=== PATIENT | female | born 1965 | race Caucasian/White ===

== ENCOUNTER 2018-08-04 16:12 | Emergency (ER) | payer MEDICAID, SELFPAY ==
[2018-08-04 16:19] VITALS: BP 143/92; PULSE 84; RESP 18; TEMP 36.7; O2SAT 96
[2018-08-04] MEDS: predniSONE 20 MG TAB 60 MG PO (16:52)
[2018-08-04] MEDS: Albuterol/Ipratropium 3 ML UPD VIAL UPD (16:52)
[2018-08-04] MEDS: Doxycycline Hyclate 100 MG CAP PO (16:52)
--- NOTE | 2018-08-04 17:02 | DI.RAD_ITS ---
SYMPTOM/DIAGNOSIS: PRODUCTIVE COUGH PA AND LATERAL CHEST: Comparison is made with portable chest dated 12/28/16. The heart size is normal. The lung bases are suboptimally penetrated due to soft tissue. The lungs are grossly clear. No focal infiltrate or effusion is visible. IMPRESSION: No acute abnormality.
--- NOTE | 2018-08-04 17:22 | DI.VRAD_ITS ---
EXAM: XR Chest, 2 Views EXAM DATE/TIME: 08/04/2018 4:39 PM CLINICAL HISTORY: 53 years old, female; Signs and symptoms; Patient HX: Productive cough TECHNIQUE: Imaging protocol: XR of the chest, 2 views. COMPARISON: [place] PORTABLE CHEST ONE VIEW 12/28/2016 7:30 PM FINDINGS: Lungs: Increased groundglass opacification in the right middle lobe. Mild segmental bronchial wall thickening suggested. Pleural space: Unremarkable. No pleural effusion. No pneumothorax. Heart/Mediastinum: Unremarkable. No cardiomegaly. Bones/joints: Unremarkable. IMPRESSION: Concern for developing/early airspace disease in the right middle lobe with superimposed acute bronchitis. Infectious pneumonic process to be entertained in the appropriate clinical setting. Dictated and Authenticated by: Hermann Rebolledo MD. Ordering:QUINN Brody MD
[2018-08-04] MEDS: levoFLOXacin 250 MG TAB 750 MG PO (17:43)
--- NOTE | 2018-08-04 17:46 | ED.GENADUL_ITS ---
Discharge Plan Disposition Patient Disposition: HOME Discharge Details Chief Complaint: RespSymp Clinical Impression: Bronchitis, Pneumonia, COPD exacerbation, Cigarette smoker Primary Care Provider: Aliyah Andrew ED Provider: Ronn Castellon Home Meds and New Rx's Prescriptions: New levofloxacin [Levaquin] 750 mg tablet 750 mg PO DAILY Qty: 4 RF: 0 prednisone 20 mg tablet 40 mg PO DAILY 4 Days Qty: 8 RF: 0 Continued Levemir FlexTouch U-100 Insuln 100 unit/mL (3 mL) insulin pen 25 unit SC BID RF: 0 sertraline 100 MG tablet 200 mg PO DAILY RF: 0 buprenorphine-naloxone [Suboxone] 1 EACH film 20 mg Sublingual DAILY RF: 0 Spiriva with HandiHaler 1 PUFF capsule, w/inhalation device 1 puff Inhalation DAILY Qty: 1 RF: 3 albuterol sulfate [Proventil HFA] 1 PUFF HFA aerosol inhaler 2 inh Inhalation Q4H PRN PRNQty: 1 RF: 3 Advair HFA 12 GM HFA aerosol inhaler 2 gm Inhalation BID Qty: 1 RF: 0 Discharge Instructions Instructions: How to Stop Smoking (ED), COPD (Chronic Obstructive Pulmonary Disease) (ED), Pneumonia (ED) Additional Instructions: Please use your nebulizer as prescribed. Be sure to take prednisone as prescribed. Your next dose is tomorrow. Please take antibiotic as prescribed. Your next dose is tomorrow. Please contact your primary care physician to arrange follow-up. Call tomorrow morning. Return to the ER for any worsening or new concerning symptoms. Stand Alone Forms: Work Release Referrals: Aliyah Andrew [Primary Care Provider] - Medical Decision Making 53-year-old female smoker with history of COPD and diabetes, here with productive cough, wheeze and shortness of breath. Patient is saturating well in no respiratory distress. She does have some wheeze and decreased breath sounds at the bases bilaterally on initial assessment. Patient is hemodynamically stable. Concern for bronchitis versus pneumonia and acute COPD exacerbation. Patient was given DuoNeb treatment and prednisone 60 mg. On reassessment lungs were much improved. Chest x-ray was reviewed and interpreted by radiology: Concern for developing/early airspace disease in the right middle lobe with superimposed acute bronchitis. Infectious pneumonic process to be entertained in the appropriate clinical setting. Plan to treat with Levaquin 750 mg x 5 days given comorbidities. We will continue prednisone burst. Smoking cessation counseling was provided. I recommended timely outpatient follow-up. Patient verbalized understanding of importance of timely outpatient follow-up and will call her primary care physician tomorrow.' Disposition decision was made weighing the risks and benefits of hospitalization versus outpatient treatment, the risk for further decompensation, and the patient's wishes. The patient was stable and requested discharge. Prior to discharge, my usual and customary return precautions were reviewed with the patient - this included follow-up instructions and reason to return to the emergency department if condition worsens, does not improve as expected, or other new concerns arise. HPI General Mode of arrival: ambulatory . Date/Time Provider Initiated Documentation: 08/04/18 16:29 . Limitations to Documentation: no limitations . Information obtained by: patient . HPI Narrative: 53-year-old female smoker with history of COPD, diabetes, here wit chief complaint of cough. Patient notes that she has had a cough productive of green sputum that has persisted and worsened over the past 1 month. Patient states she has severe coughing spells at times. She also notes she has had increased wheeze and shortness of breath recently. Subjective intermittent fever. Patient notes that she has not been taking her insulin. She checks her blood sugars regularly and notes that she only takes her insulin when she needs to. Related Data Home Medications Medication Instructions Recorded Confirmed buprenorphine-naloxone [Suboxone] 20 mg SUBLINGUAL DAILY 08/05/12 08/04/18 sertraline 200 mg PO DAILY 08/05/12 08/04/18 Advair HFA 2 gm INHALATION BID #1 inh 01/01/17 08/04/18 Spiriva with HandiHaler 1 puff INHALATION DAILY #1 antonella 01/01/17 08/04/18 albuterol sulfate [Proventil HFA] 2 inh INHALATION Q4H PRN PRN #1 inh 01/01/17 11/27/17 insulin detemir (U-100) 100 25 unit SC BID 11/27/17 11/27/17 unit/mL (3 mL) subcutaneous pen levofloxacin [Levaquin] 750 mg PO DAILY #4 tab 08/04/18 prednisone 40 mg PO DAILY 4 Days #8 tab 08/04/18 Previous Rx's Medication Instructions Recorded Advair HFA 2 gm INHALATION BID #1 inh 01/01/17 Spiriva with HandiHaler 1 puff INHALATION DAILY #1 antonella 01/01/17 albuterol sulfate [Proventil HFA] 2 inh INHALATION Q4H PRN PRN #1 inh 01/01/17 levofloxacin [Levaquin] 750 mg PO DAILY #4 tab 08/04/18 prednisone 40 mg PO DAILY 4 Days #8 tab 08/04/18 Allergies Allergy/AdvReac Type Severity Reaction Status Date / Time morphine sulfate Allergy Mild Unverified 08/04/18 16:25 [From MS Contin] clindamycin Allergy Skin Rash Unverified 08/04/18 16:25 duloxetine HCl Allergy Unverified 08/04/18 16:25 [From Cymbalta] General Stated Complaint: RespSymp MONICA: 3 Review of Systems Review of Systems All systems reviewed & are unremarkable except as noted in HPI and below Cardiovascular Denies chest pain Respiratory Reports as per HPI, Reports cough and Denies hemoptysis PFSH Medical History Anxiety and depression COPD (chronic obstructive pulmonary disease) Diabetes HTN (hypertension) Opioid abuse, in remission Tobacco use Surgical History History of total abdominal hysterectomy (Acute) S/P unilateral salpingo-oophorectomy (Acute) Family History Father Alcohol abuse Diabetes Myocardial infarct Mother Diabetes Depression Breast cancer Maternal Grandfather Diabetes Paternal Grandfather Diabetes Sister Diabetes Paternal Grandmother Lung cancer Social History Smoking/Tobacco Use Status: Current every day Tobacco Type: cigarettes Smoking cigarettes per day: 10 Tobacco: How many years used: 30 Alcohol Intake: current Alcohol Intake frequency: holidays/special occasions only Drug use: Never Substance use type: former substance user Number of Children: 2 Do you feel safe at home: Yes Do you feel safe in your relationship?: Yes Exam Const General: cooperative and no acute distress HENMT Head: normocephalic and atraumatic Mouth: moist mucous membranes Eyes Conjunctivae: normal conjunctivae Sclera: normal sclerae Neck Neck: trachea midline, supple and no JVD Resp Auscultation: no rales, no rhonchi and wheezes expiratory wheezes Cardio Jugular venous pressure: no JVD Rate: regular rate and not tachycardic Rhythm: regular rhythm GI Palpation: soft, not firm, no guarding, no masses, not rigid and nontender Skin General skin exam: no rashes or lesions noted Neuro General: alert, awake, oriented x3 and tone normal Extrem General: no calf tenderness and no edema Psych Appearance: grossly normal Course Vital Signs Temperature 36.7 C 08/04/18 16:19 Pulse 84 08/04/18 16:19 Respiratory Rate 18 08/04/18 16:19 Blood Pressure 143/92 H 08/04/18 16:19 Pulse Oximetry 96 08/04/18 16:19 Temperature 36.7 C 08/04/18 16:19 Temperature Source Temporal Artery Scan 08/04/18 16:19 Pulse 84 08/04/18 16:19 Respiratory Rate 18 08/04/18 16:19 Respiratory Effort Non-Labored 08/04/18 16:24 Blood Pressure 143/92 H 08/04/18 16:19 Blood Pressure Position Sitting 08/04/18 16:19 Pulse Oximetry 96 08/04/18 16:19 Oxygen Delivery Method Room Air 08/04/18 16:19 Oxygen Flow Rate 0 08/04/18 16:19 Pain Level 0 08/04/18 16:19
[2018-08-04 17:56] VITALS: BP 143/92; PULSE 84; RESP 18; TEMP 36.7; O2SAT 96
--- NOTE | 2018-08-04 18:17 | NUR.NOTE ---
Nursing Note: Referral faxed to [facility] for follow up. Ashley Nassar.
== END 2018-08-04 17:58 | disposition home or self-care (01) ==
PROVIDERS: Emergency Provider Student in an Organized Health Care Education/Training Program; PCP Family Medicine
DX: J44.1 Chronic obstructive pulmonary disease with (acute) exacerbation (principal); J20.9 Acute bronchitis, unspecified; J18.9 Pneumonia, unspecified organism; I10 Essential (primary) hypertension; F17.210 Nicotine dependence, cigarettes, uncomplicated; E11.9 Type 2 diabetes mellitus without complications; Z79.4 Long term (current) use of insulin
CPT/HCPCS: 36416; 82962; 94640; 99283; 71046; J7512; J7620

== ENCOUNTER 2018-10-14 12:18 | Emergency (ER) | payer MEDICAID, SELFPAY ==
[2018-10-14 12:22] VITALS: BP 114/71; PULSE 88; RESP 16; TEMP 36.5; O2SAT 98
[2018-10-14] MEDS: Amoxicillin 875/Clav. 125 TAB PO (12:50)
--- NOTE | 2018-10-14 13:06 | ED.GENADUL_ITS ---
Discharge Plan Disposition Patient Disposition: HOME Condition: Stable Discharge Details Chief Complaint: DentalOral Clinical Impression: Infected dental caries, Dental decay Primary Care Provider: Aliyah Andrew ED Provider: Duncan Joya Home Meds and New Rx's Prescriptions: New amoxicillin-pot clavulanate [Augmentin] 875-125 mg tablet 1 tab PO BID 7 Days Qty: 14 RF: 0 No Action Levemir FlexTouch U-100 Insuln 100 unit/mL (3 mL) insulin pen 25 unit SC BID RF: 0 sertraline 100 MG tablet 200 mg PO DAILY RF: 0 buprenorphine-naloxone [Suboxone] 1 EACH film 20 mg Sublingual DAILY RF: 0 Spiriva with HandiHaler 1 PUFF capsule, w/inhalation device 1 puff Inhalation DAILY Qty: 1 RF: 3 albuterol sulfate [Proventil HFA] 1 PUFF HFA aerosol inhaler 2 inh Inhalation Q4H PRN PRNQty: 1 RF: 3 Advair HFA 12 GM HFA aerosol inhaler 2 gm Inhalation BID Qty: 1 RF: 0 levofloxacin [Levaquin] 750 mg tablet 750 mg PO DAILY Qty: 4 RF: 0 Discharge Instructions Instructions: Dental Abscess (ED), Dental Caries (ED) Additional Instructions: It is very important that you take your antibiotics as prescribed and until fully gone. Do not save antibiotics for later use as this will not adequately treat your infection. You may continue to use 600 mg of ibuprofen along with 1000 mg of acetaminophen every 6 hours as needed for pain control. It is extremely important that you follow-up with a dentist for definitive care of your dental complaint and pain. Return to the emergency department immediately for any new or significant worsening of symptoms or change in your symptoms Referrals: Aliyah Andrew [Primary Care Provider] - (As needed for reassessment or dental referral) Discharge Data Discharge Date/Time-TO BE ENTERED AT DEPARTURE: 10/14/18 13:49 Medical Decision Making Patient presenting the emergency department for chief complaint of severe dental pain. Patient reports poor dental care and previous episodes of dental infections. Patient states department 3 days ago she noted some worsening dental discomfort in the right upper jaw and today felt like area was getting swollen. Physical exam shows extremely poor dentition with severe dental decay and dental loss even with some dilatation loss all the way to gumline. Tooth in the area of concern is surrounding tooth #7 there is severe dental loss with decay down to gumline, tenderness to this area, slight erythema but no palpable fluctuance or abscess is noted. Exam is otherwise unremarkable with no signs of Jamel's angina, peritonsillar abscess, retropharyngeal abscess, patient is afebrile non-hypotensive non-tachycardic. Thoroughly discussed with patient risk versus benefits of dental block which she agreed to this. After verbal consent was given patient was injected with 1 mL of 0.5% Marcaine. Patient tolerated procedure appropriately but it was difficult to fully get to the appropriate area given patient's hesitancy with severe guarding with any injection. Patient was placed upon Augmentin and encouraged to use [id number] Tylenol Motrin and strongly encouraged that she needs to follow-up with dental provider for definitive dental care. Return precautions were discussed. After discussion of diagnosis and plan of care patient has no further needs, questions, or concerns and states clear understanding to return to the emergency department for any worsening symptoms. HPI General Mode of arrival: ambulatory . Date/Time Provider Initiated Documentation: 10/14/18 12:21 . Limitations to Documentation: no limitations . Information obtained by: patient . History of Present Illness 53 year old F presents to the emergency department with the chief complaint of Dental pain, described as severe and similar to prior episodes, with intensity rated at 10. Quality is described as sharp, and is localized to the mouth. Patient started experiencing this day(s) (3) and it has been constant. No relieving factors improve symptom(s), Patient notes no other symptoms.. Patient did receive the following treatments prior to arrival, NSAID Related Data Home Medications Medication Instructions Recorded Confirmed buprenorphine-naloxone [Suboxone] 20 mg SUBLINGUAL DAILY 08/05/12 08/04/18 sertraline 200 mg PO DAILY 08/05/12 08/04/18 Advair HFA 2 gm INHALATION BID #1 inh 01/01/17 08/04/18 Spiriva with HandiHaler 1 puff INHALATION DAILY #1 antonella 01/01/17 08/04/18 albuterol sulfate [Proventil HFA] 2 inh INHALATION Q4H PRN PRN #1 inh 01/01/17 11/27/17 insulin detemir U-100 100 unit/mL 25 unit SC BID 11/27/17 11/27/17 (3 mL) subcutaneous pen levofloxacin [Levaquin] 750 mg PO DAILY #4 tab 08/04/18 amoxicillin-pot clavulanate 1 tab PO BID 7 Days #14 tab 10/14/18 [Augmentin] Previous Rx's Medication Instructions Recorded Advair HFA 2 gm INHALATION BID #1 inh 01/01/17 Spiriva with HandiHaler 1 puff INHALATION DAILY #1 antonella 01/01/17 albuterol sulfate [Proventil HFA] 2 inh INHALATION Q4H PRN PRN #1 inh 01/01/17 levofloxacin [Levaquin] 750 mg PO DAILY #4 tab 08/04/18 amoxicillin-pot clavulanate 1 tab PO BID 7 Days #14 tab 10/14/18 [Augmentin] Allergies Allergy/AdvReac Type Severity Reaction Status Date / Time morphine sulfate Allergy Mild Unverified 08/04/18 16:25 [From MS Contin] clindamycin Allergy Skin Rash Unverified 08/04/18 16:25 duloxetine HCl Allergy Unverified 08/04/18 16:25 [From Cymbalta] General Stated Complaint: DentalOral MONICA: 4 Review of Systems Constitutional Denies chills and Denies fever(s) ENT Reports as per HPI, Denies change in voice, Reports dental pain, Denies dysphagia, Denies throat swelling and Denies tongue swelling Cardiovascular Denies dyspnea Respiratory Denies dyspnea Gastrointestinal Denies dysphagia Allergic/Immunologic Denies throat swelling and Denies tongue swelling PFSH Medical History Anxiety and depression COPD (chronic obstructive pulmonary disease) Diabetes HTN (hypertension) Opioid abuse, in remission Tobacco use Surgical History History of total abdominal hysterectomy (Acute) S/P unilateral salpingo-oophorectomy (Acute) Family History Father Alcohol abuse Diabetes Myocardial infarct Mother Diabetes Depression Breast cancer Maternal Grandfather Diabetes Paternal Grandfather Diabetes Sister Diabetes Paternal Grandmother Lung cancer Social History Smoking/Tobacco Use Status: Current every day Tobacco Type: cigarettes Tobacco: How many years used: 30 Alcohol Intake: current Alcohol Intake frequency: holidays/special occasions only Drug use: Never Substance use type: former substance user Number of Children: 2 Do you feel safe at home: Yes Do you feel safe in your relationship?: Yes Exam Const General: cooperative Orientation: alert, awake and oriented x3 Limitations: mental status not altered [facility] Head: normal to inspection, normocephalic and atraumatic Ears: hearing grossly normal bilaterally, normal mastoids bilaterally and no periauricular adenopathy General nose exam: external nose normal Mouth: oropharynx normal, no drooling, no muffled voice, normal tongue and no trismus Teeth and gingiva: abnormal tooth or associated gingiva upper right lateral incisor tender and avulsed (With tooth loss to gumline); without any associated gingival edema, caries and poor dentition (With severe dental decay, multiple missing teeth, tooth loss to gumline) Throat: posterior oropharynx normal, tonsils normal and uvula midline Eyes General: appearance normal, both eyes and all related structures Pupils: PERRL Neck Neck: normal visual inspection, full ROM, no lymphadenopathy, no meningeal signs, trachea midline, supple, no anterior neck swelling and no midline deformity Resp Effort & Inspection: normal respiratory effort and able to speak in complete sentences Course Vital Signs Temperature 36.5 C 10/14/18 12:22 Pulse 88 10/14/18 12:22 Respiratory Rate 16 10/14/18 12:22 Blood Pressure 114/71 10/14/18 12:22 Pulse Oximetry 98 10/14/18 12:22 Temperature 36.5 C 10/14/18 12:22 Temperature Source Temporal Artery Scan 10/14/18 12:22 Pulse 88 10/14/18 12:22 Respiratory Rate 16 10/14/18 12:22 Respiratory Effort Non-Labored 10/14/18 12:28 Blood Pressure 114/71 10/14/18 12:22 Blood Pressure Position Sitting 10/14/18 12:22 Pulse Oximetry 98 10/14/18 12:22 Oxygen Delivery Method Room Air 10/14/18 12:22 Oxygen Flow Rate 0 10/14/18 12:22 Pain Level 10 10/14/18 12:22
[2018-10-14] MEDS: Bupivacaine 0.5% Pres-Free 30 ML VIAL IJ (13:13)
[2018-10-14] MEDS: Ibuprofen 600 MG TAB PO (13:27)
== END 2018-10-14 13:49 | disposition home or self-care (01) ==
PROVIDERS: Emergency Provider Nurse Practitioner Family; PCP Family Medicine
DX: K04.7 Periapical abscess without sinus (principal); K02.9 Dental caries, unspecified
CPT/HCPCS: 99283

== ENCOUNTER 2019-07-24 01:43 | Emergency (ER) | payer MEDICAID, SELFPAY ==
[2019-07-24 01:48] VITALS: BP 171/96; PULSE 74; RESP 18; TEMP 36.4; O2SAT 96
--- NOTE | 2019-07-24 01:55 | W.ED.GENAD ---
Discharge Plan Disposition Patient Disposition: HOME Condition: Good Discharge Details Chief Complaint: DentalOral Clinical Impression: Dental infection Primary Care Provider: Aliyah Andrew ED Provider: Juancho Cornell Home Meds and New Rx's Prescriptions: New amoxicillin 500 mg capsule 500 mg PO Q8H Qty: 20 RF: 0 Continued Levemir FlexTouch U-100 Insuln 100 unit/mL (3 mL) insulin pen 25 unit SC BID RF: 0 sertraline 100 MG tablet 200 mg PO DAILY RF: 0 buprenorphine-naloxone [Suboxone] 1 EACH film 20 mg Sublingual DAILY RF: 0 Spiriva with HandiHaler 1 PUFF capsule, w/inhalation device 1 puff Inhalation DAILY Qty: 1 RF: 3 albuterol sulfate [Proventil HFA] 1 PUFF HFA aerosol inhaler 2 inh Inhalation Q4H PRN PRNQty: 1 RF: 3 Advair HFA 12 GM HFA aerosol inhaler 2 gm Inhalation BID Qty: 1 RF: 0 Discharge Instructions Instructions: Dental Abscess (ED) Additional Instructions: Continue alternating ibuprofen 600 mg with acetaminophen 1 g. Use benzocaine as shown. Fill antibiotic tomorrow and continue taking as directed. Follow-up with dentist for further evaluation and management. Return to ED for fever, inability to swallow, difficulty breathing, increasing facial pain/swelling. Medical Decision Making Patient presenting with dental pain with percussion tenderness and facial pain likely dental infection. She is on Suboxone and unlikely that oral narcotic medication is going to breakthrough the naloxone. She has been taking ibuprofen and acetaminophen which we will continue. We will try 20% benzocaine topically and start her on amoxicillin. She will need to follow-up with dentistry. Return to ED develop fever, inability to swallow, difficulty breathing, increasing facial swelling. HPI General Mode of arrival: ambulatory. Date/Time Provider Initiated Documentation: 07/24/19 01:43. Limitations to Documentation: no limitations. Information obtained by: patient and RN notes reviewed. HPI Narrative: Patient presents to ED with left upper dental pain. She has had intermittent problems with her teeth in the past. Developed a toothache yesterday morning. She now has severe pain in the left upper maxillary area. She has had no fever. She has had no drainage. She has no difficulty breathing or swallowing. She has been taking ibuprofen and acetaminophen as well as using Orajel and close without relief. Presents to ED crying because of dental pain. Related Data Home Medications Medication Instructions Recorded Confirmed buprenorphine-naloxone [Suboxone] 20 mg SUBLINGUAL DAILY 08/05/12 07/24/19 sertraline 200 mg PO DAILY 08/05/12 07/24/19 Advair HFA 2 gm INHALATION BID #1 inh 01/01/17 07/24/19 Spiriva with HandiHaler 1 puff INHALATION DAILY #1 antonella 01/01/17 07/24/19 albuterol sulfate [Proventil HFA] 2 inh INHALATION Q4H PRN PRN #1 inh 01/01/17 07/24/19 insulin detemir U-100 100 unit/mL 25 unit SC BID 11/27/17 07/24/19 (3 mL) subcutaneous pen amoxicillin 500 mg PO Q8H #20 cap 07/24/19 Previous Rx's Medication Instructions Recorded Advair HFA 2 gm INHALATION BID #1 inh 01/01/17 Spiriva with HandiHaler 1 puff INHALATION DAILY #1 antonella 01/01/17 albuterol sulfate [Proventil HFA] 2 inh INHALATION Q4H PRN PRN #1 inh 01/01/17 amoxicillin 500 mg PO Q8H #20 cap 07/24/19 Allergies Allergy/AdvReac Type Severity Reaction Status Date / Time morphine sulfate Allergy Mild Unverified 07/24/19 01:50 [From MS Contin] clindamycin Allergy Skin Rash Unverified 07/24/19 01:50 duloxetine HCl Allergy Unverified 07/24/19 01:50 [From Cymbalta] General Stated Complaint: DentalOral MONICA: 5 Review of Systems Constitutional Constitutional: Denies chills and Denies fever(s) ENT Ears, Nose, Mouth, and Throat: Reports dental pain and Denies dysphagia Cardiovascular Cardiovascular: Denies dyspnea Respiratory Respiratory: Denies cough and Denies dyspnea Gastrointestinal Gastrointestinal: Denies dysphagia [facility] Medical History Anxiety and depression COPD (chronic obstructive pulmonary disease) Diabetes HTN (hypertension) Opioid abuse, in remission Tobacco use Surgical History History of total abdominal hysterectomy (Acute) S/P unilateral salpingo-oophorectomy (Acute) Social History Smoking/Tobacco Use Status: Current every day Tobacco Type: cigarettes Tobacco: How many years used: 30 Alcohol Intake: current Alcohol Intake frequency: holidays/special occasions only Drug use: Never Substance use type: former substance user Number of Children: 2 Do you feel safe at home: Yes Do you feel safe in your relationship?: Yes Exam Narrative Exam Narrative: Vitals: Afebrile. Elevated blood pressure otherwise normal vitals and normal room air pulse ox. Const: WDWN female in NAD. HEENT: NC/AT. Normal facial exam. No facial swelling. Very poor dentition throughout especially upper teeth. Significant decay and percussion tenderness involving teeth 11 and 12. Eyes: Normal conjunctiva and sclera. Neck: Supple. Trachea midline. Lungs: Normal respiratory effort. Neuro: A+O x 3. Normal speech, mentation, gait. Cranial nerves II - XII grossly intact. No gross motor or sensory deficit. Course Vital Signs Vital signs: Vital Signs Temperature 97.5 F L 07/24/19 01:48 Pulse 74 07/24/19 01:48 Respiratory Rate 18 07/24/19 01:48 Blood Pressure 171/96 H 07/24/19 01:48 Pulse Oximetry 96 07/24/19 01:48 Temperature 97.5 F L 07/24/19 01:48 Temperature Source Skin 07/24/19 01:48 Pulse 74 07/24/19 01:48 Respiratory Rate 18 07/24/19 01:48 Respiratory Effort Non-Labored 07/24/19 01:51 Blood Pressure 171/96 H 07/24/19 01:48 Pulse Oximetry 96 07/24/19 01:48 Pain Level 10 07/24/19 01:51
[2019-07-24] MEDS: Amoxicillin 500 MG CAP PO (02:10)
[2019-07-24] MEDS: Benzocaine 20% Gel 30 GM JAR MM (02:10)
== END 2019-07-24 02:45 | disposition home or self-care (01) ==
LOC: ER 02:25
PROVIDERS: Emergency Provider Emergency Medicine; PCP Family Medicine
DX: R68.84 Jaw pain (principal); K04.7 Periapical abscess without sinus; J44.9 Chronic obstructive pulmonary disease, unspecified; F17.210 Nicotine dependence, cigarettes, uncomplicated; E11.9 Type 2 diabetes mellitus without complications; I10 Essential (primary) hypertension
CPT/HCPCS: 99283

== ENCOUNTER 2019-08-15 07:47 | Emergency (ER) | payer MEDICAID, SELFPAY ==
[2019-08-15 08:00] VITALS: BP 143/60; PULSE 81; RESP 20; TEMP 36.6; O2SAT 94
--- NOTE | 2019-08-15 08:13 | ED.GENADUL_ITS ---
Discharge Plan Disposition Patient Disposition: HOME Condition: Stable Discharge Details Chief Complaint: DentalOral Clinical Impression: Dental infection Primary Care Provider: Aliyah Andrew ED Provider: Yasmin Blum Home Meds and New Rx's Prescriptions: New amoxicillin-pot clavulanate [Augmentin] 875-125 mg tablet 1 tab PO BID 7 Days Qty: 14 RF: 0 No Action Levemir FlexTouch U-100 Insuln 100 unit/mL (3 mL) insulin pen 25 unit SC BID RF: 0 sertraline 100 MG tablet 200 mg PO DAILY RF: 0 buprenorphine-naloxone [Suboxone] 1 EACH film 20 mg Sublingual DAILY RF: 0 Spiriva with HandiHaler 1 PUFF capsule, w/inhalation device 1 puff Inhalation DAILY Qty: 1 RF: 3 albuterol sulfate [Proventil HFA] 1 PUFF HFA aerosol inhaler 2 inh Inhalation Q4H PRN PRNQty: 1 RF: 3 Advair HFA 12 GM HFA aerosol inhaler 2 gm Inhalation BID Qty: 1 RF: 0 Discharge Instructions Instructions: How to Stop Smoking (ED), Toothache (ED) Additional Instructions: Take antibiotic as prescribed. You do need to see a dentist, please call the number provided for emergency operating dental treatment site during COVID. Try [id number] topical Orajel or similar. Continue taking Tylenol or ibuprofen. Follow up with primary care provider in 3-5 days. Return to ED sooner if any worsening or concerns. Increase oral fluids. A non-smoking will be the best thing you could do for yourself. Referrals: Aliyah Andrew [Primary Care Provider] - Medical Decision Making 54-year-old female presents with dental pain. She reports having pain which shows never had a hard time sleeping, she has been trying Tylenol and ibuprofen at home. She was seen beginning of July on 07/24/2019 and was prescribed amoxicillin. She states that it went away for little while does not have a dent ist. She has chronic poor dentition noted. Broken upper and lower molars noted on the right side. There is a small blister to her bugle mucosa on the inner right cheek. No fluctuance noted to the gums, no drainage noted no area which will need incision or drainage at this time. She is speaking in full sentences, no trouble breathing. She is complaining of slight sore throat. Tonsils are 1+, no exudate. No cervical lymphadenopathy. She is a smoker. Patient given Augmentin 1 tablet in department and Hurricaine gel. Offered dental block which patient refused at this time. Patient was given list of emergency dental treatment centers during COVID instructed to follow-up. Patient verbalized understanding. This text was generated using [employer] dictation system, please disregard any oddities of phrase or misspellings. HPI General Mode of arrival: ambulatory . Date/Time Provider Initiated Documentation: 08/15/19 08:04 . Limitations to Documentation: no limitations . Information obtained by: patient . HPI Narrative: 54-year-old female presents with dental pain. She reports having pain which shows never had a hard time sleeping, she has been trying Tylenol and ibuprofen at home. She was seen beginning of July on 07/24/2019 and was prescribed amoxicillin. She states that it went away for little while does not have a dentist. She has chronic poor dentition noted. Broken upper and lower molars noted on the right side. There is a small blister to her bugle mucosa on the inner right cheek. No fluctuance noted to the gums, no drainage noted no area which will need incision or drainage at this time. She is speaking in full sentences, no trouble breathing. She is complaining of slight sore throat. Tonsils are 1+, no exudate. No cervical lymphadenopathy. She is a smoker. Related Data Home Medications Medication Instructions Recorded Confirmed buprenorphine-naloxone [Suboxone] 20 mg SUBLINGUAL DAILY 08/05/12 08/15/19 sertraline 200 mg PO DAILY 08/05/12 08/15/19 Advair HFA 2 gm INHALATION BID #1 inh 01/01/17 08/15/19 Spiriva with HandiHaler 1 puff INHALATION DAILY #1 antonella 01/01/17 08/15/19 albuterol sulfate [Proventil HFA] 2 inh INHALATION Q4H PRN PRN #1 inh 01/01/17 08/15/19 insulin detemir U-100 100 unit/mL 25 unit SC BID 11/27/17 08/15/19 (3 mL) subcutaneous pen amoxicillin-pot clavulanate 1 tab PO BID 7 Days #14 tab 08/15/19 [Augmentin] Previous Rx's Medication Instructions Recorded Advair HFA 2 gm INHALATION BID #1 inh 01/01/17 Spiriva with HandiHaler 1 puff INHALATION DAILY #1 antonella 01/01/17 albuterol sulfate [Proventil HFA] 2 inh INHALATION Q4H PRN PRN #1 inh 01/01/17 amoxicillin-pot clavulanate 1 tab PO BID 7 Days #14 tab 08/15/19 [Augmentin] Allergies Allergy/AdvReac Type Severity Reaction Status Date / Time morphine sulfate Allergy Mild Unverified 08/15/19 08:31 [From MS Contin] clindamycin Allergy Skin Rash Unverified 08/15/19 08:31 duloxetine HCl Allergy Unverified 08/15/19 08:31 [From Cymbalta] General Stated Complaint: DentalOral MONICA: 5 Review of Systems Narrative: Constitutional: Negative for weight loss, alert and oriented, well groomed, normal body habitus, appears comfortable. HEENT: Denies trauma, headaches, blurry vision, nasal discharge, trouble swallowing. Positive sore throat. Poor dentition. Chest: Denies chest pain, palpitations, irregular rhythm, hypertension. : Denies dysuria, hematuria, flank pain, rectal bleeding. Neuro: Denies dizziness, blurry vision, weakness, syncope, headache or facial numbness. [facility] Medical History Anxiety and depression COPD (chronic obstructive pulmonary disease) Diabetes HTN (hypertension) Opioid abuse, in remission Tobacco use Surgical History History of total abdominal hysterectomy (Acute) S/P unilateral salpingo-oophorectomy (Acute) Family History Father , age 68 Alcohol abuse Diabetes Myocardial infarct Mother Diabetes Depression Breast cancer Maternal Grandfather Diabetes Paternal Grandfather Diabetes Sister Diabetes Paternal Grandmother Lung cancer Social History Smoking/Tobacco Use Status: Current every day Tobacco Type: cigarettes Tobacco: How many years used: 30 Alcohol Intake: current Alcohol Intake frequency: holidays/special occasions only Drug use: Never Substance use type: former substance user Number of Children: 2 Do you feel safe at home: Yes Do you feel safe in your relationship?: Yes Exam [facility] Head: normal to inspection Ears: hearing grossly normal bilaterally and TM's normal bilaterally General nose exam: external nose normal and nares normal Face and sinus: normal facial exam, sinuses nontender and face symmetric Mouth: no muffled voice Mouth/tongue images: 1. Small superficial blister Teeth and gingiva: abnormal tooth or associated gingiva (Multiple broken, rotted teeth.), caries, gingiva abnormal (No visible abscess or palpable area of fluctuance) diffusely erythematous, tender and receding and poor dentition Throat: uvula midline and posterior oropharynx abnormal erythema Course Vital Signs Vital signs: Vital Signs Temperature 36.6 C 08/15/19 08:00 Pulse 81 08/15/19 08:00 Respiratory Rate 20 08/15/19 08:00 Blood Pressure 143/60 H 08/15/19 08:00 Pulse Oximetry 94 L 08/15/19 08:00 Temperature 36.6 C 08/15/19 08:00 Temperature Source Skin 08/15/19 08:00 Pulse 81 08/15/19 08:00 Respiratory Rate 20 08/15/19 08:00 Blood Pressure 143/60 H 08/15/19 08:00 Blood Pressure Position Sitting 08/15/19 08:00 Pulse Oximetry 94 L 08/15/19 08:00 Oxygen Delivery Method Room Air 08/15/19 08:00 Oxygen Flow Rate 0 08/15/19 08:00
[2019-08-15] MEDS: Benzocaine 20% Gel 30 GM JAR MM (08:28)
[2019-08-15] MEDS: Amoxicillin 875/Clav. 125 TAB PO (08:28)
== END 2019-08-15 08:32 | disposition home or self-care (01) ==
PROVIDERS: Emergency Provider Registered Nurse Emergency; PCP Family Medicine
DX: R68.84 Jaw pain (principal); K04.7 Periapical abscess without sinus; J02.9 Acute pharyngitis, unspecified; I10 Essential (primary) hypertension; E11.9 Type 2 diabetes mellitus without complications; Z79.4 Long term (current) use of insulin; J44.9 Chronic obstructive pulmonary disease, unspecified; F17.210 Nicotine dependence, cigarettes, uncomplicated
CPT/HCPCS: 99283

== ENCOUNTER 2019-09-14 10:53 | Emergency (ER) | payer MEDICAID, SELFPAY ==
[2019-09-14 10:57] VITALS: BP 136/74; PULSE 87; RESP 18; TEMP 36.7; O2SAT 96
--- NOTE | 2019-09-14 11:10 | W.ED.GENAD ---
Discharge Plan Disposition Patient Disposition: HOME Condition: Improving Discharge Details Chief Complaint: DentalOral Clinical Impression: Odontalgia Primary Care Provider: Aliyah Andrew ED Provider: Trell Troncoso Home Meds and New Rx's Prescriptions: New penicillin V potassium 500 mg tablet 500 mg PO TID 10 Days Qty: 30 RF: 0 Continued Levemir FlexTouch U-100 Insuln 100 unit/mL (3 mL) insulin pen 25 unit SC BID RF: 0 sertraline 100 MG tablet 200 mg PO DAILY RF: 0 buprenorphine-naloxone [Suboxone] 1 EACH film 20 mg Sublingual DAILY RF: 0 Spiriva with HandiHaler 1 PUFF capsule, w/inhalation device 1 puff Inhalation DAILY Qty: 1 RF: 3 albuterol sulfate [Proventil HFA] 1 PUFF HFA aerosol inhaler 2 inh Inhalation Q4H PRN PRNQty: 1 RF: 3 Advair HFA 12 GM HFA aerosol inhaler 2 gm Inhalation BID Qty: 1 RF: 0 Discharge Instructions Instructions: Toothache (ED) Additional Instructions: Home to rest today. Small, frequent sips of fluids to maintain hydration. See enclosed dentistry follow-up resource list. Take penicillin as prescribed. Medical Decision Making 54-year-old female with left upper odontalgia due to 2 broken molars. Probable developing apical infection. No area of fluctuance. She will require another dose of penicillin and will refer her to dentistry for outpatient recheck. She is stable and appropriate for discharge. HPI General Mode of arrival: ambulatory. Date/Time Provider Initiated Documentation: 09/14/19 10:53. Limitations to Documentation: no limitations. Information obtained by: patient. History of Present Illness 54 year old F presents to the emergency department with the chief complaint of Left upper dental pain, described as moderate, Quality is described as dull and constant, and is localized to the face, mouth and left. Patient reports no radiation. Patient started experiencing this hour(s) and it has been constant. No relieving factors improve symptom(s), No exacerbating factors reported . Patient notes denies fever/chills, loss of appetite, nausea/vomiting and shortness of breath. Patient did receive the following treatments prior to arrival, none Related Data Home Medications Medication Instructions Recorded Confirmed buprenorphine-naloxone [Suboxone] 20 mg SUBLINGUAL DAILY 08/05/12 09/14/19 sertraline 200 mg PO DAILY 08/05/12 09/14/19 Advair HFA 2 gm INHALATION BID #1 inh 01/01/17 09/14/19 Spiriva with HandiHaler 1 puff INHALATION DAILY #1 antonella 01/01/17 09/14/19 albuterol sulfate [Proventil HFA] 2 inh INHALATION Q4H PRN PRN #1 inh 01/01/17 09/14/19 insulin detemir U-100 100 unit/mL 25 unit SC BID 11/27/17 09/14/19 (3 mL) subcutaneous pen penicillin V potassium 500 mg PO TID 10 Days #30 tab 09/14/19 Previous Rx's Medication Instructions Recorded Advair HFA 2 gm INHALATION BID #1 inh 01/01/17 Spiriva with HandiHaler 1 puff INHALATION DAILY #1 antonella 01/01/17 albuterol sulfate [Proventil HFA] 2 inh INHALATION Q4H PRN PRN #1 inh 01/01/17 penicillin V potassium 500 mg PO TID 10 Days #30 tab 09/14/19 Allergies Allergy/AdvReac Type Severity Reaction Status Date / Time morphine sulfate Allergy Mild Unverified 09/14/19 11:00 [From MS Contin] clindamycin Allergy Skin Rash Unverified 09/14/19 11:00 duloxetine HCl Allergy Unverified 09/14/19 11:00 [From Cymbalta] General Stated Complaint: DentalOral MONICA: 3 Review of Systems Narrative: No drooling, no other complaints. [facility] Medical History Anxiety and depression COPD (chronic obstructive pulmonary disease) Diabetes HTN (hypertension) Opioid abuse, in remission Tobacco use Social History Smoking/Tobacco Use Status: Current every day Tobacco Type: cigarettes Tobacco: How many years used: 30 Alcohol Intake: current Alcohol Intake frequency: holidays/special occasions only Drug use: Never Substance use type: former substance user Number of Children: 2 Do you feel safe at home: Yes Do you feel safe in your relationship?: Yes Exam Narrative Exam Narrative: GEN: awake, alert, oriented 3. Pleasant, well groomed, interactive. HEAD: Normocephalic, atraumatic ENT: Mucous membranes moist, oropharynx partially edentulous, broken teeth present on patient's upper left and tender to percussion without lingual or buccal swelling, TMs clear bilaterally, External ear exam unremarkable EYES: PERRL, EOMI NECK: Full ROM, no JAMES, no menigismus CHEST/RESP: Nontender, clear to auscultation bilateral, no wheeze/rhonchi/rales CARDIOVASCULAR: RRR, no murmur, rub john. 2+ Rad pulse bilateral Neuro: Grossly normal neurologic exam, conversant, interactive. Psych: Speech fluent, thoughts congruent, affect normal Course Vital Signs Vital signs: Vital Signs Temperature 36.7 C 09/14/19 10:57 Pulse 87 09/14/19 10:57 Respiratory Rate 18 09/14/19 10:57 Blood Pressure 136/74 09/14/19 10:57 Pulse Oximetry 96 09/14/19 10:57 Temperature 36.7 C 09/14/19 10:57 Temperature Source Tympanic 09/14/19 10:57 Pulse 87 09/14/19 10:57 Respiratory Rate 18 09/14/19 10:57 Respiratory Effort Non-Labored 09/14/19 11:00 Blood Pressure 136/74 09/14/19 10:57 Blood Pressure Position Sitting 09/14/19 10:57 Pulse Oximetry 96 09/14/19 10:57 Oxygen Delivery Method Room Air 09/14/19 10:57 Oxygen Flow Rate 0 09/14/19 10:57 Pain Level 7 09/14/19 10:57
[2019-09-14 11:16] VITALS: BP 136/74; PULSE 87; RESP 18; TEMP 36.7; O2SAT 96
[2019-09-14] MEDS: Penicillin V POTASSIUM 500 MG TAB PO (11:17)
[2019-09-14] MEDS: Benzocaine 20% Gel 30 GM JAR MM (11:17)
== END 2019-09-14 11:17 | disposition home or self-care (01) ==
PROVIDERS: Emergency Provider Emergency Medicine; PCP Family Medicine
DX: R68.84 Jaw pain (principal); E11.9 Type 2 diabetes mellitus without complications; Z79.4 Long term (current) use of insulin; I10 Essential (primary) hypertension; J44.9 Chronic obstructive pulmonary disease, unspecified; F17.210 Nicotine dependence, cigarettes, uncomplicated
CPT/HCPCS: 99283